=== PATIENT | male | born 1970 | race Caucasian/White ===

== ENCOUNTER 2017-10-18 02:15 | Emergency (ER) | payer OTHER ==
[~2017-10-18] VITALS: Ht 185.4 cm; Wt 120.2 kg
[~2017-10-18 02:15] MED LIST: FLOVENT HFA 2220 MCG; FLOVENT HFA 2220 MCG INH; SINGULAIR 10 MG10 M1; SINGULAIR 10 MG10 M1 PO; VENTOLIN HFA 1818 GM
[2017-10-18] MEDS ORDERED: HYDROCODON-ACE1 EAC7 PO (04:24)
[2017-10-18] MEDS ORDERED: CIPROFLOXACIN500 M1 PO (04:24)
[2017-10-18 04:37] VITALS: BP 143/86
== END 2017-10-18 04:37 | disposition home or self-care (01) ==
LOC: M.ERS 02:15
DX: N45.1 Epididymitis (principal); J45.909 Unspecified asthma, uncomplicated; Z91.013 Allergy to seafood